=== PATIENT | female | born 1960 | race Two or more races ===

== ENCOUNTER 2025-06-26 06:40 | Day surgery (SDC) | payer MEDICARE, MEDICAID, SELFPAY ==
[2025-06-23 14:15] VITALS: BMI 28.0
[2025-06-26] VITALS (11 sets, daily range): BP systolic 115–145; BP diastolic 74–93; PULSE 64–88; RESP 10–20; TEMP 36.2–36.7; O2SAT 93–100; BMI 26.1
[2025-06-26] MEDS: SODIUM CHLORIDE 0.9% 500 ML 500 ML 20 ML IV (07:59)
[2025-06-26] MEDS: fentaNYL CIT INJ 50 mCg/ML AMP 2ML (ASD USE ONLY) IVP (07:59)
[2025-06-26] MEDS: MIDAZOLAM INJ 1 MG/ML VIAL 2 ML (ASD USE ONLY) 2 MG IVP (08:05)
== END 2025-06-26 09:03 | disposition home or self-care (01) ==
PROVIDERS: PCP Obstetrics & Gynecology; Referring Provider Surgery; Visit Provider Surgery
PROC: 0DBE8ZX Excision of Large Intestine, Via Natural or Artificial Opening Endoscopic, Diagnostic (ICD-10-PCS; CPT 45380; principal; 2025-06-26 07:30)
DX: Z12.11 Encounter for screening for malignant neoplasm of colon (principal); D12.3 Benign neoplasm of transverse colon; D12.0 Benign neoplasm of cecum; K64.1 Second degree hemorrhoids; E78.00 Pure hypercholesterolemia, unspecified; E03.9 Hypothyroidism, unspecified; Z79.899 Other long term (current) drug therapy; Z79.890 Hormone replacement therapy; K52.9 Noninfective gastroenteritis and colitis, unspecified
CPT/HCPCS: 45380; A4649; J1200; J2250; J3010; J7999